=== PATIENT | male | born 1995 | race Caucasian/White ===

== ENCOUNTER 2020-06-05 20:33 | Inpatient (IN) | payer OTHER, SELFPAY ==
[2020-06-05 20:42] VITALS: BP 150/99; PULSE 103; RESP 22; TEMP 36.7; O2SAT 99; BMI 29.2
--- NOTE | 2020-06-05 20:55 | CTR_ITS ---
PROCEDURE INFORMATION: Exam: CT Abdomen And Pelvis With Contrast Exam date and time: 06/05/2020 9:00 PM Age: 24 years old Clinical indication: Abdominal pain; Patient HX: Rlq pain x 1 day; Additional info: Abd pain TECHNIQUE: Imaging protocol: Computed tomography of the abdomen and pelvis with contrast. Sagittal and coronal reformatted images were created and reviewed. Radiation optimization: All CT scans at this facility use at least one of these dose optimization techniques: automated exposure control; mA and/or kV adjustment per patient size (includes targeted exams where dose is matched to clinical indication); or iterative reconstruction. Contrast material: OMNI 300; Contrast volume: 95 ml; Contrast route: INTRAVENOUS (IV); COMPARISON: No relevant prior studies available. RADIATION DOSE METRICS: Total DLP (mGy-cm): 1617.2 FINDINGS: Lungs: Calcified granulomas in the the visualized lower lungs. Visualized lungs are clear. Pleural spaces: No pleural effusion. Heart: Visualized portions of the heart are unremarkable. Liver: The liver is unremarkable. Gallbladder and bile ducts: The gallbladder is unremarkable. No biliary ductal dilatation. Pancreas: The pancreas is unremarkable. No pancreatic ductal dilatation. Spleen: Calcified granuloma in the spleen. Adrenal glands: The right and left adrenal glands are unremarkable. Kidneys and ureters: The right and left kidneys are unremarkable. The right and left ureters are unremarkable. Stomach and bowel: Ingested contents in the stomach. No acute abnormality in the small bowel. Fatty infiltration of the wall of the the cecum and ascending colon. No acute abnormality in the colon. Findings suggest sequela of chronic inflammation. Appendix: Multiple calcified appendicoliths in the lumen of the appendix, including one at the base of the appendix. The appendix is dilated, measuring 1.7 cm in diameter (series 602, image 36). Extensive periappendiceal inflammation. Small amount of periappendiceal fluid. Intraperitoneal space: Small amount of free fluid in the pelvis. No free intraperitoneal air. No loculated fluid collections to suggest an abscess. Vasculature: No evidence for aortic aneurysm or aortic dissection. Hepatic veins, portal veins, splenic vein, and SMV are patent. Lymph nodes: Prominent lymph nodes in the right lower quadrant, likely reactive in nature. Urinary bladder: Unremarkable as visualized. Reproductive: Unremarkable as visualized. Bones/joints: No acute fracture. Soft tissues: No acute abnormality in the extra-abdominal soft tissues. CT/CT abdomen pelvis w con* [id number] IMPRESSION: 1. Multiple calcified appendicoliths in the lumen of the appendix, including one at the base of the appendix with changes consistent with appendicitis. No evidence for appendiceal rupture. 2. Small amount of free fluid in the pelvis. 3. Incidental/nonacute findings are listed in the report. COMMENTS: THIS REPORT CONTAINS FINDINGS THAT MAY BE CRITICAL TO PATIENT CARE. The findings were verbally communicated via telephone conference with NICK Rojas at 9:23 PM CDT on 06/05/2020. The findings were acknowledged and understood. Radiation Dose CTDIVOL = (mGy): DLP = 1617.2 (mGy-cm)
--- NOTE | 2020-06-05 21:00 | ED_ITS ---
HPI - Abdominal Pain General: Chief Complaint: Abdominal Pain Stated Complaint: severe abd pain, right side Time Seen by Provider: 06/05/20 20:51 Source: patient Mode of arrival: ambulatory Limitations: no limitations History of Present Illness: HPI narrative: 24-year-old male states he started having abdominal pain last night getting much worse today at 7:30 PM. He states he is also had nausea with no vomiting. Patient rates his pain an 9 out of 10 currently. He is diaphoretic and appears in distress. He has had no history of abdominal surgeries MD elicited complaint: abdominal pain Associated Symptoms: Reports nausea and vomiting; Denies chills, dysuria and fever(s) Review of Systems Const: Denies: fever(s), chills, body aches or change in appetite Eyes: Denies: blurry vision or eye discomfort ENMT: Denies: throat pain or dental pain Card: Denies: chest pain Resp: Denies: dyspnea GI: Reports: abdominal pain, nausea and vomiting : Denies: dysuria Musc: Denies: neck pain or back pain Skin/Breast: Denies: rash Neuro: Denies: headache(s) Psych: Denies: depression Ren/Lymph: Denies: easy bruising All/Imm: Denies: urticaria Physical Exam Const: COMMON NORMALS: no acute distress, patient oriented x3 and healthy appearing HENMT: COMMON NORMALS: normocephalic and atraumatic HEAD & SCALP: normocephalic and atraumatic Eye: COMMON NORMALS: Equal, round and reactive pupils present and EOMs intact bilaterally PUPIL: Yes Equal, round and reactive pupils present Neck/C-Spine: COMMON NORMALS: full ROM and supple Chest: COMMONS NORMALS: normal inspection of the chest and normal palpation of entire chest wall Resp: COMMON NORMALS: normal respiratory effort, No retractions, No use of accessory muscles and clear to auscultation bilaterally AUSCULTATION: clear to auscultation bilaterally Cardio: COMMON NORMALS: regular rate, regular rhythm and No murmurs present (Cardio) RATE: regular rate RHYTHM: regular rhythm GI: COMMON NORMALS: Normal to inspection, nondistended, normoactive bowel sounds present and no masses PALPATION: Yes Firmness to palpation present (GI) and Yes Tenderness to palpation present (GI) Details: RLQ Extremity: COMMON NORMALS: normal to inspection and full ROM Neuro: COMMON NORMALS: patient oriented x3, moves all extremities and no focal motor deficits Psych: COMMON NORMALS: mental status grossly normal, Normal thought process present and cooperative THOUGHT PROCESS: Normal thought process present Skin: COMMON NORMALS: no rashes or lesions noted and no wounds GENERAL SKIN EXAM: no rashes or lesions noted Course Vital Signs: Vital signs: Vital Signs Temperature 98.0 F 06/05/20 20:42 Pulse Rate 93 06/05/20 21:27 Respiratory Rate 19 H 06/05/20 21:27 Blood Pressure 167/104 06/05/20 21:27 Pulse Oximetry 97 06/05/20 21:27 MDM - Abdominal Pain MDM Narrative: Medical decision making narrative: Patient presents with appendicitis. I spoke to surgeon on-call will do CT findings with him. He is going to take him to the OR at this time. Patient started on IV antibiotics. Lab Data: Labs: Lab Results 06/05/20 06/05/20 Range/Units 20:57 20:57 WBC 17.9 H (4.0-10.0) 10^3/ uL RBC 5.40 H (4.1-5.3) 10^6/u L Hgb 16.7 H (11.7-16.6) g/dL Hct 48.1 (42.0-52.0) % MCV 89.1 (80-94) fL MCH 30.9 (28.0-34.0) pg MCHC 34.7 (30.0-36.0) g/dL RDW 11.3 L (12.1-15.1) % Plt Count 348 (130-400) 10^3/c mm MPV 10.3 (7.4-10.4) fL Neut % (Auto) 70.7 % Lymph % (Auto) 20.2 % [place] % (Auto) 7.8 % Eos % (Auto) 0.6 % Baso % (Auto) 0.4 % Neut # (Auto) 12.66 H (1.8-7.7) 10^3/u L Lymph # (Auto) 3.6 (0.8-4.8) 10^3/u L [place] # (Auto) 1.4 H (0.2-0.9) 10^3/u L Eos # (Auto) 0.1 (0.0-0.8) 10^3/u L Baso # (Auto) 0.1 (0.0-0.1) 10^3/u L Nucleated RBC % (a uto) 0 % Nucleated RBCs # 0.0 /100WBC Sodium 134 L (136-145) mmol/L Potassium 3.6 (3.5-5.1) mmol/L Chloride 96 L (98-107) mmol/L Carbon Dioxide 21 L (22-29) mmol/L Anion Gap 20.6 H (5-19) BUN 9 (6-20) mg/dL Creatinine 0.6 L (0.7-1.2) mg/dL GFR Calculation 165.5 H (90-130) mL/min Glucose 129 H (65-115) mg/dL Calculated Osmolal ity 278 L (285-295) mOsm/k g Calcium 9.5 (8.5-10.5) mg/dL Total Bilirubin 0.8 (0.15-1.2) mg/dL AST 25 (0-40) U/L ALT 43 H (0-41) U/L Alkaline Phosphata se 160 H (40-130) IU/L Total Protein 8.0 (6.6-8.7) g/dL Albumin 4.5 (3.5-5.2) g/dL Globulin 3.5 (1.3-4.6) g/dL Lipase 17 (13-60) U/L Imaging Data ^: CT Abd/Pel: Attestation: I personally reviewed and interpreted this imaging study as follows: Radiologist's impression: [address] [address] [address] Scan Report Signed Patient: Abdelrahman Nelson Unit #: [id number] : 1995 Age/Sex: 24 / M ADM Date: 06/05/20 Loc: ER Room/Bed: Attending Dr: Ordering Provider/Ordering MD: Lamar Tucker MD Date of Service: 06/05/20 Procedure(s): CT abdomen pelvis w con* [id number] Accession Number(s): [id number] Report Number: [id number] PROCEDURE INFORMATION: Exam: CT Abdomen And Pelvis With Contrast Exam date and time: 06/05/2020 9:00 PM Age: 24 years old Clinical indication: Abdominal pain; Patient HX: Rlq pain x 1 day; Additional info: Abd pain TECHNIQUE: Imaging protocol: Computed tomography of the abdomen and pelvis with contrast. Sagittal and coronal reformatted images were created and reviewed. Radiation optimization: All CT scans at this facility use at least one of these dose optimization techniques: automated exposure control; mA and/or kV adjustment per patient size (includes targeted exams where dose is matched to clinical indication); or iterative reconstruction. Contrast material: OMNI 300; Contrast volume: 95 ml; Contrast route: INTRAVENOUS (IV); COMPARISON: No relevant prior studies available. RADIATION DOSE METRICS: Total DLP (mGy-cm): 1617.2 FINDINGS: Lungs: Calcified granulomas in the the visualized lower lungs. Visualized lungs are clear. Pleural spaces: No pleural effusion. Heart: Visualized portions of the heart are unremarkable. Liver: The liver is unremarkable. Gallbladder and bile ducts: The gallbladder is unremarkable. No biliary ductal dilatation. Pancreas: The pancreas is unremarkable. No pancreatic ductal dilatation. Spleen: Calcified granuloma in the spleen. Adrenal glands: The right and left adrenal glands are unremarkable. Kidneys and ureters: The right and left kidneys are unremarkable. The right and left ureters are unremarkable. Stomach and bowel: Ingested contents in the stomach. No acute abnormality in the small bowel. Fatty infiltration of the wall of the the cecum and ascending colon. No acute abnormality in the colon. Findings suggest sequela of chronic inflammation. Appendix: Multiple calcified appendicoliths in the lumen of the appendix, including one at the base of the appendix. The appendix is dilated, measuring 1.7 cm in diameter (series 602, image 36). Extensive periappendiceal inflammation. Small amount of periappendiceal fluid. Intraperitoneal space: Small amount of free fluid in the pelvis. No free intraperitoneal air. No loculated fluid collections to suggest an abscess. Vasculature: No evidence for aortic aneurysm or aortic dissection. Hepatic veins, portal veins, splenic vein, and SMV are patent. Lymph nodes: Prominent lymph nodes in the right lower quadrant, likely reactive in nature. Urinary bladder: Unremarkable as visualized. Reproductive: Unremarkable as visualized. Bones/joints: No acute fracture. Soft tissues: No acute abnormality in the extra-abdominal soft tissues. CT/CT abdomen pelvis w con* [id number] IMPRESSION: 1. Multiple calcified appendicoliths in the lumen of the appendix, including one at the base of the appendix with changes consistent with appendicitis. No evidence for appendiceal rupture. 2. Small amount of free fluid in the pelvis. 3. Incidental/nonacute findings are listed in the report. COMMENTS: Discharge Plan Discharge Patient Disposition: Admitted As Inpatient Clinical Impression: Acute appendicitis Qualifiers: Acute appendicitis type: with localized peritonitis Appendicitis gangrene presence: without gangrene Appendicitis perforation presence: without pe rforation Appendicitis abscess presence: without abscess Qualified Code(s): K35.30 - Acute appendicitis with localized peritonitis, without perforation or gangrene Condition: Stable Coding Level of Care Code ED Machine Design Checker for Chg Fwd Exam Comprehensive
[2020-06-05 21:07] LABS: Basophils # 0.1 10^3/uL (0.0-0.1); Basophils % 0.4 %; Eosinophils # 0.1 10^3/uL (0.0-0.8); Eosinophils % 0.6 %; Hematocrit 48.1 % (42.0-52.0); Hemoglobin 16.7 g/dL (11.7-16.6); Lymphocytes # 3.6 10^3/uL (0.8-4.8); Lymphocytes % 20.2 %; Mean Corpuscular HGB Conc 34.7 g/dL (30.0-36.0); Mean Corpuscular Hemoglobin 30.9 pg (28.0-34.0); Mean Corpuscular Volume 89.1 fL (80-94); Mean Platelet Volume 10.3 fL (7.4-10.4); Monocytes # 1.4 10^3/uL (0.2-0.9); Monocytes % 7.8 %; Neutrophils # 12.66 10^3/uL (1.8-7.7); Neutrophils % 70.7 %; Nucleated Red Blood Cells % 0 %; Platelet Count 348 10^3/cmm (130-400); Red Cell Distribution Width 11.3 % (12.1-15.1); White Blood Count 17.9 10^3/uL (4.0-10.0)
[2020-06-05] MEDS: ondansetron 2 mg/ML SDV 2 mL 4 MG IVP (21:08)
[2020-06-05] MEDS: iohexol 300 mg/mL 100 mL Btl IV (21:08)
[2020-06-05] MEDS: HYDROmorphone 1 mg/mL INJ 1 mL IVP ×2 (21:08→21:33)
[2020-06-05 21:23] LABS: Alanine Aminotransferase 43 U/L (0-41); Albumin Level 4.5 g/dL (3.5-5.2); Alkaline Phosphatase 160 IU/L (40-130); Anion Gap 20.6 (5-19); Aspartate Amino Transferase 25 U/L (0-40); Blood Urea Nitrogen 9 mg/dL (6-20); Calcium 9.5 mg/dL (8.5-10.5); Carbon Dioxide 21 mmol/L (22-29); Chloride 96 mmol/L (98-107); Globulin 3.5 g/dL (1.3-4.6); Glomerular Filtration Rate 165.5 mL/min (90-130); Glucose 129 mg/dL (65-115); Lipase 17 U/L (13-60); Osmolality Calculated 278 mOsm/kg (285-295); Potassium 3.6 mmol/L (3.5-5.1); Sodium 134 mmol/L (136-145); Total Bilirubin 0.8 mg/dL (0.15-1.2)
[2020-06-05] MEDS: piperacillin-tazobactam 3.375 GM in sodium chloride 0.9% (plus) 50 ML IV (21:24)
[2020-06-05 21:27] VITALS: BP 167/104; PULSE 93; RESP 19; O2SAT 97
--- NOTE | 2020-06-05 22:18 | PM.HP ---
Providers/Chief Complaint Primary Care Provider: Dario Yoon MD Chief Complaint: severe abd pain, right side History of Present Illness Abdelrahman Nelson is a 24 year old male presented to the ER today with 24-hour history of generalized abdominal pain. Patient stated pain started last night but was not significant during the course of the day today got progressively worse. The pain was generalized but more prominent in the right lower quadrant. Patient denies any nausea, vomiting, fevers, chills, constipation or diarrhea. Review of Systems General: Reports: 10 or more systems reviewed and unremarkable except in HPI and below Medications/Allergies Home Medications Medication Instructions Recorded Confirmed Last Taken Type No Known Home Medications 06/05/20 06/05/20 Unknown History Allergies Allergy/AdvReac Type Severity Reaction Status Date / Time No Known Allergies Allergy Verified 06/05/20 20:48 Vitals/I&O/Wt Last Vital Signs Temp 98.0 F 06/05/20 20:42 Pulse 93 06/05/20 21:27 Resp 19 H 06/05/20 21:27 BP 167/104 06/05/20 21:27 Pulse Ox 97 06/05/20 21:27 06/05/20 06/05/20 06/05/20 06:59 14:59 22:59 Intake Total 50 / 50 Balance 50 / 50 Weight last 48 hrs Weight 210 lb Physical Exam Narrative: EXAM NARRATIVE: HEENT: Normocephalic Eye: Sclera /conjunctiva normal Respiratory and chest: Bilateral clear breath sounds on auscultation Cardiovascular: Normal S1 and S2 heart sounds Abdomen: Soft to palpation, generalized tenderness, Rovsing sign positive Neurological: Oriented to place person and time Skin: Intact, no lesions appreciated on gross exam Data : 06/05/20 20:57 06/05/20 20:57 A&P Assessment and plan (1) Acute appendicitis: 24-year-old male with generalized abdominal pain, leukocytosis white count of 17.[address] scan performed today showing acute appendicitis with no evidence of perforation. Patient has generalized tenderness with voluntary guarding and therefore we will plan for laparoscopic possible open appendectomy today Procedure, risks, benefits and alternatives have been discussed with the patient who wishes to proceed with surgery. Status: Resolved Qualifiers: Acute appendicitis type: with localized peritonitis Appendicitis abscess presence: without abscess Appendicitis gangrene presence: without gangrene Appendicitis perforation presence: without perforation Qualified Code(s): K35.30 - Acute appendicitis with localized peritonitis, without perforation or gangrene Attestations Medical Necessity Statement*: Acute appendicitis Coding Level of Care Code Acute Analysis Lead for [facility] Diagnoses Acute appendicitis K35.30 Acute appendicitis type: with localized peritonitis Appendicitis abscess presence: without abscess Appendicitis gangrene presence: without gangrene Appendicitis perforation presence: without perforation
[2020-06-05 22:22] VITALS: BP 156/102; PULSE 94; RESP 22; TEMP 36.6; O2SAT 98
[2020-06-05] MEDS: sodium chloride 0.9% 1,000 ML 30 ML IV (22:24)
--- NOTE | 2020-06-05 22:35 | P.ANESASSM_ITS ---
Pre-Anesthetic Assessment Pre-Anesthetic Assessment: Height/Weight: Height 1.8 m Weight 95.254 kg Temp Pulse Resp BP Pulse Ox 98.0 F 93 19 H 167/104 97 06/05/20 20:42 06/05/20 21:27 06/05/20 21:27 06/05/20 21:27 06/05/20 21:27 Preop Diagnosis: Acute appendicitis Proposed Procedure: Operation Date: 06/05/20 22:30 Proposed Procedures p Laparoscopic Appendectomy(Not Applicable) - Onofre Mann MD Operation Date: 06/06/20 00:05 Proposed Procedures p Laparoscopic Appendectomy(Not Applicable) - Onofre Mann MD Familial anesthetic complications: none Was Beta Geovany taken within 24 hours: N/A Was Clonidine taken within 24 hours: N/A Last intake: V8 juice at 1500 Social: Social History: Tobacco and No alcohol Exam: Pre-Anes Outpt Exam: alert, oriented x 3, clear to auscultation bilaterally and regular rate & rhythm Airway: Cervical ROM: WNL MP: 3 Dentition: Full Additional comments: states tooth may be starting to abscess Anesthetic Plan: ASA status: 1E Anesthesia: General Risk of > 500 ml blood loss (7ml/kg in children): No Data Anesthesia CBC & Chem 7: 06/05/20 20:57 06/05/20 20:57 Other Labs: Laboratory Results - last 48 hr 06/05/20 06/05/20 20:57 20:57 WBC 17.9 H RBC 5.40 H Hgb 16.7 H Hct 48.1 MCV 89.1 MCH 30.9 MCHC 34.7 RDW 11.3 L Plt Count 348 MPV 10.3 Neut % (Auto) 70.7 Lymph % (Auto) 20.2 [place] % (Auto) 7.8 Eos % (Auto) 0.6 Baso % (Auto) 0.4 Neut # (Auto) 12.66 H Lymph # (Auto) 3.6 [place] # (Auto) 1.4 H Eos # (Auto) 0.1 Baso # (Auto) 0.1 Nucleated RBC % (auto) 0 Nucleated RBCs # 0.0 Sodium 134 L Potassium 3.6 Chloride 96 L Carbon Dioxide 21 L Anion Gap 20.6 H BUN 9 Creatinine 0.6 L GFR Calculation 165.5 H Glucose 129 H Calculated Osmolality 278 L Calcium 9.5 Total Bilirubin 0.8 AST 25 ALT 43 H Alkaline Phosphatase 160 H Total Protein 8.0 Albumin 4.5 Globulin 3.5 Lipase 17 Cardiac Studies: No Data to Display
--- NOTE | 2020-06-05 23:45 | P.OP_ITS ---
Operative Report Date of procedure: June 05, 2020 Pre-op Diagnosis: Acute appendicitis Post-op Diagnosis: Acute perforated appendicitis Procedure Done: Laparoscopic appendectomy Specimens removed/disposition: Appendix Surgeon: Onofre Mann Anesthesia: General Condition: stable Disposition: PACU Procedure: The patient was taken to the Operating Room and intubated under general anesthesia after antibiotic had been administered. Using a 15 blade, a 1-cm infraumbilical incision was made and using open [place] technique, the peritoneal cavity was entered. A 12mm port with balloon was placed and 15 mm of pneumoperitoneum was created and 10-mm 30 degree scope was introduced. Two separate 5mm ports were placed in the left and right lower quadrant under direct visualization. The appendix was noted in the right lower quadrant and appeared acutely inflamed with a perforation near the base of the appendix. There was moderate amount of purulent fluid in the right lower quadrant and pelvis which was irrigated and suctioned out. Using [place] forceps, an opening was made in the mesoappendix near the base of the appendix. An Endo WILLIAM stapler 45mm long 3.5mm blue load was introduced to divide the appendix at it's base. Using electrocautery, the mesoappendix was partially divided and then a 45 mm long 2.5 mm white load was used to divide the rest of the thickened mesoappendix including appendicular artery. There was no bleeding noted and the staple line appeared intact. The right lower quadrant, pelvis, right paracolic gutter was irrigated with 2 L of saline and an EndoCatch bag was introduced to remove the a ppendix. All three ports were removed under direct visualization and there was no bleeding noted at the port sites. 10 cc of 0.5% Marcaine was infiltrated at the port sites. The fascia at the umbilical port was closed using figure of eight 0-Vicryl sutures and subcutaneous tissue was approximated using 3-0 Vicryl and skin at all 3 port sites was closed using rod and covered with sterile dressings. The patient was extubated and transferred recovery room in stable condition.
[2020-06-05 23:57] VITALS: BP 156/106; PULSE 90; RESP 16; TEMP 37.2; O2SAT 97
[2020-06-06] VITALS (18 sets, daily range): BP systolic 120–161; BP diastolic 78–111; PULSE 80–110; RESP 16–21; TEMP 36.9–37.7; O2SAT 95–97
--- NOTE | 2020-06-06 00:01 | P.PCN_ITS ---
PACU note PACU note: VSS, Good respiratory effort, report to SUPERVISOR SECURITIES VAULT Post-Anesthesia Exam: awake
--- NOTE | 2020-06-06 00:01 | PM.PACU ---
PACU note PACU note: VSS, Good respiratory effort, report to SUPERVISOR STONE Post-Anesthesia Exam: awake
[2020-06-06] MEDS: piperacillin-tazobactam 3.375 GM in sodium chloride 0.9% (plus) 50 ML IV ×3 (01:02→16:10)
[2020-06-06] MEDS: D5-NS 0.45% + KCL 20 mEq 20 MEQ/1,000 ML BAG 100 MEQ IV ×3 (01:02→20:39)
[2020-06-06] MEDS: HYDROcodone-acetaminophen 5-325 mg Tablet 1 TAB PO ×2 (05:44→17:28)
[2020-06-06 06:55] LABS: Basophils % 0.2 %; Eosinophils # 0.2 10^3/uL (0.0-0.8); Eosinophils % 1.3 %; Hematocrit 45.3 % (42.0-52.0); Hemoglobin 15.1 g/dL (11.7-16.6); Lymphocytes # 0.3 10^3/uL (0.8-4.8); Lymphocytes % 1.9 %; Mean Corpuscular HGB Conc 33.3 g/dL (30.0-36.0); Mean Corpuscular Hemoglobin 31.2 pg (28.0-34.0); Mean Corpuscular Volume 93.6 fL (80-94); Mean Platelet Volume 10.4 fL (7.4-10.4); Monocytes # 0.7 10^3/uL (0.2-0.9); Monocytes % 4.1 %; Neutrophils # 16.22 10^3/uL (1.8-7.7); Neutrophils % 91.7 %; Nucleated Red Blood Cells % 0 %; Platelet Count 268 10^3/cmm (130-400); Red Blood Count 4.84 10^6/uL (4.1-5.3); Red Cell Distribution Width 11.5 % (12.1-15.1); White Blood Count 17.7 10^3/uL (4.0-10.0)
--- NOTE | 2020-06-06 07:03 | ANE.PACU2 ---
Inpatient post-anesthesia follow up: Airway intact: Yes Vital signs: Temperature 98.9 F Pulse Rate [Left] 103 Pulse Rate 110 Respiratory Rate 18 Blood Pressure [Le ft Arm] 150/99 Blood Pressure 152/99 Pulse Oximetry 97 Oxygen Delivery Me thod Room Air Oxygen Flow Rate Fraction of Inspir ed Oxygen Hydration adequate: Yes Nausea and vomiting: No Pain level: 3 Mental status: Baseline
[2020-06-06] MEDS: docusate sodium 100 mg Capsule PO ×2 (10:10→17:28)
[2020-06-06] MEDS: acetaminophen 325 mg Tablet 650 MG PO (10:10)
--- NOTE | 2020-06-06 10:12 | PM.PN ---
Subjective Subjective: Interval history: Patient states he is feeling better today after surgery, no nausea or vomiting, tolerating clears, no flatus or BM Vitals/I&O/Wt Last Vital Signs Temp 98.6 F 06/06/20 07:05 Pulse 110 H 06/06/20 07:05 Resp 17 06/06/20 07:05 BP 141/92 06/06/20 07:05 Pulse Ox 96 06/06/20 07:05 06/05/20 06/06/20 06/06/20 22:59 06:59 14:59 Intake Total 50 / 410 360 / 410 390 / 390 Output Total 425 / 425 425 / 425 Balance 50 / -15 -65 / -15 -35 / -35 Weight last 48 hrs Weight 210 lb Physical Exam Narrative: EXAM NARRATIVE: Abdomen: Soft, mildly distended, tender, dressings minimally saturated and intact Data : 06/06/20 06:35 06/05/20 20:57 A&P Assessment and plan (1) S/P laparoscopic appendectomy: 24-year-old male status post laparoscopic appendectomy for perforated appendicitis, with leukocytosis, tachycardic and has postop ileus Continue IV fluids Continue clear liquid diet Ambulate ad ramirez. Continue IV Zosyn CBC tomorrow morning Morphine and [place] for pain control Colace 100 mg p.o. twice daily for bowel regimen Status: Acute Attestations Medical Necessity Statement*: Acute appendicitis requiring continued in patient stay for IV antibiotics Coding Level of Care Code Acute Marriage And Family Social Worker for g Fwd Diagnoses S/P laparoscopic appendectomy Z90.49
[2020-06-07] MEDS: piperacillin-tazobactam 3.375 GM in sodium chloride 0.9% (plus) 50 ML IV ×3 (00:12→17:00)
[2020-06-07 04:00] VITALS: BP 120/78; PULSE 99; RESP 17; TEMP 36.7; O2SAT 96
[2020-06-07] MEDS: HYDROcodone-acetaminophen 5-325 mg Tablet 1 TAB PO (05:31)
[2020-06-07] MEDS: D5-NS 0.45% + KCL 20 mEq 20 MEQ/1,000 ML BAG 100 MEQ IV ×2 (05:32→17:01)
[2020-06-07 06:53] LABS: Basophils % 0.2 %; Eosinophils % 0.2 %; Hematocrit 41.8 % (42.0-52.0); Hemoglobin 13.6 g/dL (11.7-16.6); Lymphocytes # 1.8 10^3/uL (0.8-4.8); Lymphocytes % 12.1 %; Mean Corpuscular HGB Conc 32.5 g/dL (30.0-36.0); Mean Corpuscular Hemoglobin 31.1 pg (28.0-34.0); Mean Corpuscular Volume 95.4 fL (80-94); Monocytes # 1.1 10^3/uL (0.2-0.9); Monocytes % 7.5 %; Neutrophils # 11.56 10^3/uL (1.8-7.7); Neutrophils % 79.2 %; Nucleated Red Blood Cells % 0 %; Platelet Count 241 10^3/cmm (130-400); Red Blood Count 4.38 10^6/uL (4.1-5.3); Red Cell Distribution Width 11.7 % (12.1-15.1); White Blood Count 14.6 10^3/uL (4.0-10.0)
[2020-06-07 07:33] VITALS: BP 122/73; PULSE 72; RESP 16; TEMP 37; O2SAT 98
[2020-06-07] MEDS: acetaminophen 325 mg Tablet 650 MG PO ×2 (09:53→20:30)
[2020-06-07] MEDS: docusate sodium 100 mg Capsule PO (09:53)
[2020-06-07 11:24] VITALS: BP 126/68; PULSE 68; RESP 17; TEMP 36.8; O2SAT 99
--- NOTE | 2020-06-07 12:06 | P.PN_ITS ---
Subjective Subjective: Interval history: Patient is distended, no nausea or vomiting, no flatus or BM Vitals/I&O/Wt Last Vital Signs Temp 98.2 F 06/07/20 11:24 Pulse 68 06/07/20 11:24 Resp 17 06/07/20 11:24 BP 126/68 06/07/20 11:24 Pulse Ox 99 06/07/20 11:24 06/06/20 06/07/20 06/07/20 22:59 06:59 14:59 Intake Total 1360 / 3623.333 938.333 / 3623.333 240 / 240 Output Total 500 / 925 Balance 1360 / 2698.333 438.333 / 2698.333 240 / 240 Weight last 48 hrs Weight 210 lb Physical Exam Narrative: EXAM NARRATIVE: Abdomen: Soft, distended, minimally tender Data : 06/07/20 05:23 06/05/20 20:57 A&P Assessment and plan (1) S/P laparoscopic appendectomy: 24-year-old male status post laparoscopic appendectomy for perforated appendicitis, with leukocytosis trending down, has postop ileus Continue IV fluids Continue clear liquid diet Ambulate ad ramirez. Continue IV Zosyn CBC tomorrow morning Morphine and [place] for pain control Colace 100 mg p.o. twice daily for bowel regimen Status: Acute Attestations Medical Necessity Statement*: Postoperative status post laparoscopic appendectomy for perforated appendicitis requiring continued inpatient stay Coding Level of Care Code Acute Pile Fabric Knitter for [place] Fwd Diagnoses S/P laparoscopic appendectomy Z90.49
[2020-06-07 15:35] VITALS: BP 122/65; PULSE 73; RESP 17; TEMP 37.1; O2SAT 99
--- NOTE | 2020-06-07 17:54 | XRR_ITS ---
PROCEDURE INFORMATION: Exam: XR Chest Exam date and time: 06/07/2020 6:07 PM Age: 24 years old Clinical indication: Device placement; Ng tube; Prior surgery; Surgery type: Appy; Additional info: Ng insertion TECHNIQUE: Imaging protocol: XR of the chest Views: 1 view. Total images: 1 COMPARISON: No relevant prior studies available. FINDINGS: Tubes, catheters and devices: Nasogastric tube tip below the diaphragm at the level of the mid gastric lumen. Lungs: No visible active interstitial or alveolar airspace disease. Pleural spaces: Unremarkable. No pleural effusion. No pneumothorax. Heart/Mediastinum: Unremarkable. No cardiomegaly. Vasculature: Ectatic loops of small and large bowel within the field of view of the abdomen. Bones/joints: Unremarkable. XR/XR chest 1V portable [id number] IMPRESSION: Nasogastric tube tip below the diaphragm at the level of the mid gastric lumen.
[2020-06-07] MEDS: ondansetron 2 mg/ML SDV 2 mL 4 MG IVP (18:23)
[2020-06-07 19:54] VITALS: BP 148/103; PULSE 108; RESP 26; TEMP 37.4; O2SAT 96
[2020-06-08] VITALS: BP 135/85; PULSE 105; RESP 18; TEMP 36.6; O2SAT 95
[2020-06-08] MEDS: piperacillin-tazobactam 3.375 GM in sodium chloride 0.9% (plus) 50 ML IV ×4 (01:07→23:48)
[2020-06-08] MEDS: D5-NS 0.45% + KCL 20 mEq 20 MEQ/1,000 ML BAG 100 MEQ IV ×3 (03:53→23:48)
[2020-06-08 04:00] VITALS: BP 147/99; PULSE 102; RESP 20; TEMP 36.6; O2SAT 96
[2020-06-08 05:55] LABS: Basophils % 0.2 %; Eosinophils # 0.1 10^3/uL (0.0-0.8); Eosinophils % 0.4 %; Hematocrit 45.9 % (42.0-52.0); Hemoglobin 14.9 g/dL (11.7-16.6); Lymphocytes # 1.2 10^3/uL (0.8-4.8); Lymphocytes % 7.5 %; Mean Corpuscular HGB Conc 32.5 g/dL (30.0-36.0); Mean Corpuscular Hemoglobin 30.7 pg (28.0-34.0); Mean Corpuscular Volume 94.4 fL (80-94); Mean Platelet Volume 10.6 fL (7.4-10.4); Monocytes # 1.2 10^3/uL (0.2-0.9); Monocytes % 7.6 %; Neutrophils # 13.43 10^3/uL (1.8-7.7); Neutrophils % 83.7 %; Nucleated Red Blood Cells % 0 %; Platelet Count 313 10^3/cmm (130-400); Red Blood Count 4.86 10^6/uL (4.1-5.3); Red Cell Distribution Width 11.6 % (12.1-15.1); White Blood Count 16.1 10^3/uL (4.0-10.0)
[2020-06-08 06:08] LABS: Anion Gap 13.7 (5-19); Blood Urea Nitrogen 6 mg/dL (6-20); Calcium 8.9 mg/dL (8.5-10.5); Carbon Dioxide 27 mmol/L (22-29); Chloride 98 mmol/L (98-107); Glomerular Filtration Rate 138.6 mL/min (90-130); Glucose 143 mg/dL (65-115); Osmolality Calculated 280 mOsm/kg (285-295); Potassium 3.7 mmol/L (3.5-5.1); Sodium 135 mmol/L (136-145)
--- NOTE | 2020-06-08 07:50 | P.PN_ITS ---
Subjective Subjective: Interval history: Patient had 2 episodes of emesis yesterday, continue to be distended NG tube was placed but he pulled it out and did not want NG tube replaced. Passing flatus now. Denies any nausea or vomiting though he still distended Vitals/I&O/Wt Last Vital Signs Temp 97.8 F 06/08/20 04:00 Pulse 102 H 06/08/20 04:00 Resp 20 H 06/08/20 04:00 BP 147/99 06/08/20 04:00 Pulse Ox 96 06/08/20 04:00 06/07/20 06/08/20 06/08/20 22:59 06:59 14:59 Intake Total 1000 / 2471.667 1061.667 / 2471.667 Output Total 275 / 275 Balance 1000 / 2196.667 786.667 / 2196.667 Physical Exam Narrative: EXAM NARRATIVE: Abdomen: Soft, distended, minimally tender, incision clean dry and intact Data : 06/08/20 05:33 06/08/20 05:33 A&P Assessment and plan (1) S/P laparoscopic appendectomy: 24-year-old male status post laparoscopic appendectomy for perforated appendicitis, with leukocytosishas postop ileus Continue IV fluids N.p.o. except ice chips, if patient has emesis will need an NG tube Ambulate ad ramirez. Continue IV Zosyn Daily labs Morphine, Tylenol and [place] for pain control Colace senna and lactulose for bowel regimen Status: Acute Attestations Medical Necessity Statement*: Status post laparoscopic appendectomy for perforated appendicitis currently doing well Coding Level of Care Code Acute Frame Stylist for Loren Fwd Diagnoses S/P laparoscopic appendectomy Z90.49
[2020-06-08 07:53] VITALS: BP 147/99; PULSE 102; RESP 20; TEMP 36.6; O2SAT 96
[2020-06-08] MEDS: sennosides-docusate Tablet 1 TAB PO ×2 (09:21→17:09)
[2020-06-08] MEDS: lactulose oral liq 20 gm/30 mL UDC 10 GM PO ×2 (09:21→20:28)
[2020-06-08] MEDS: acetaminophen 325 mg Tablet 650 MG PO ×2 (09:21→17:09)
[2020-06-08 11:31] VITALS: BP 132/93; PULSE 102; RESP 19; TEMP 36.5; O2SAT 96
[2020-06-08 15:26] VITALS: BP 142/93; PULSE 120; RESP 19; TEMP 36.6; O2SAT 98
[2020-06-08 19:42] VITALS: BP 142/89; PULSE 100; RESP 18; TEMP 37.4; O2SAT 95
[2020-06-09] VITALS: BP 160/90; PULSE 109; RESP 18; TEMP 37.4; O2SAT 95
[2020-06-09] MEDS: acetaminophen 325 mg Tablet 650 MG PO ×2 (03:35→09:05)
[2020-06-09 03:40] LABS: Basophils % 0.3 %; Eosinophils # 0.1 10^3/uL (0.0-0.8); Eosinophils % 0.8 %; Hematocrit 42.8 % (42.0-52.0); Hemoglobin 14.3 g/dL (11.7-16.6); Lymphocytes # 1.2 10^3/uL (0.8-4.8); Lymphocytes % 9.7 %; Mean Corpuscular HGB Conc 33.4 g/dL (30.0-36.0); Mean Corpuscular Hemoglobin 30.7 pg (28.0-34.0); Mean Corpuscular Volume 91.8 fL (80-94); Mean Platelet Volume 10.6 fL (7.4-10.4); Monocytes # 1.4 10^3/uL (0.2-0.9); Monocytes % 11.9 %; Neutrophils # 9.01 10^3/uL (1.8-7.7); Neutrophils % 76.3 %; Nucleated Red Blood Cells % 0 %; Platelet Count 320 10^3/cmm (130-400); Red Blood Count 4.66 10^6/uL (4.1-5.3); Red Cell Distribution Width 11.4 % (12.1-15.1); White Blood Count 11.8 10^3/uL (4.0-10.0)
[2020-06-09 04:00] VITALS: BP 116/76; PULSE 120; RESP 20; TEMP 37.6; O2SAT 95
[2020-06-09 04:32] LABS: Anion Gap 14.6 (5-19); Blood Urea Nitrogen 7 mg/dL (6-20); Calcium 8.9 mg/dL (8.5-10.5); Carbon Dioxide 26 mmol/L (22-29); Chloride 97 mmol/L (98-107); Glomerular Filtration Rate 138.6 mL/min (90-130); Glucose 143 mg/dL (65-115); Osmolality Calculated 278 mOsm/kg (285-295); Potassium 3.6 mmol/L (3.5-5.1); Sodium 134 mmol/L (136-145)
[2020-06-09 07:25] VITALS: BP 155/75; PULSE 90; RESP 18; TEMP 36.6; O2SAT 97
[2020-06-09] MEDS: sennosides-docusate Tablet 1 TAB PO (08:57)
[2020-06-09] MEDS: piperacillin-tazobactam 3.375 GM in sodium chloride 0.9% (plus) 50 ML IV (08:57)
--- NOTE | 2020-06-09 10:28 | P.PN_ITS ---
Subjective Subjective: Interval history: Patient had multiple bowel movements yesterday, no nausea or vomiting, tolerating clear liquid diet Vitals/I&O/Wt Last Vital Signs Temp 97.8 F 06/09/20 07:25 Pulse 90 06/09/20 07:25 Resp 18 06/09/20 07:25 BP 155/75 06/09/20 07:25 Pulse Ox 97 06/09/20 07:25 06/08/20 06/09/20 06/09/20 22:59 06:59 14:59 Intake Total 110 / 2193.333 1033.333 / 2193.333 Output Total 450 / 525 200 / 200 Balance -340 / 6764.062 1904.333 / 1668.333 -200 / -200 Physical Exam 2 Narrative: EXAM NARRATIVE: Abdomen: Soft, minimally distended, nontender, incision clean dry intact Data : 06/09/20 03:02 06/09/20 03:02 A&P Assessment and plan (1) S/P laparoscopic appendectomy: 24-year-old male status post laparoscopic appendectomy for perforated appendicitis, with WBC down to 11.8 and return of bowel function Continue IV fluids Advance to GI soft diet Ambulate ad ramirez. DC home today on oral antibiotics Status: Acute Attestations Medical Necessity Statement*: Acute appendicitis DC home today Coding Level of Care Code Acute [employer] Of [employer] for [employer]ian [employer] Diagnoses S/P laparoscopic appendectomy Z90.49
--- NOTE | 2020-06-09 10:29 | PM.DCS ---
Discharge Providers Date of Admission: 06/06/20 10:15 Date of Discharge: June 09, 2020 Attending Provider at Admission: Onofre Mann MD Attending Provider at Discharge: Onofre Mann MD Primary Care Provider: Dario Yoon MD Diagnoses at Discharge Discharge Diagnosis (1) S/P laparoscopic appendectomy: Status: Acute Reason for Visit Reason for Visit: severe abd pain, right side Hospital Course Hospital Course Abdelrahman Nelson is a 24 year old male presented to the ER today with 24-hour history of generalized abdominal pain. Patient stated pain started last night but was not significant during the course of the day today got progressively worse. The pain was generalized but more prominent in the right lower quadrant. Patient denies any nausea, vomiting, fevers, chills, constipation or diarrhea. Patient went laparoscopic appendectomy and was admitted to the hospital for IV antibiotics due to perforation of the appendix noted during surgery. Patient subsequently developed postop ileus with nausea and vomiting and abdominal distention requiring NG tube placement. By day 3 he had return of bowel function and he is tolerating clear liquid diet. At time of discharge his vital signs are stable, afebrile, tolerating GI soft diet and having bowel movements. His white count is down to 11. Patient will be discharged home on oral antibiotics for 1 week Follow-up 2 weeks for removal of sutures Discharge Data Data Completed and Pending: Completed Studies During Hospitalization Category Date Time Status CT abdomen pelvis w con* [id number] Urge nt Cat Scan 06/05/20 20:55 Completed CXRP [XR chest 1V portable 15944] S tat Exams 06/07/20 17:54 Completed Pending at discharge Category Date Time Status ES surgery / GI i mages Routine Exams 06/05/20 22:11 Taken Basic Metabolic P emiliana AM LABS Lab 06/10/20 04:00 Ordered Basic Metabolic P emiliana AM LABS Lab 06/11/20 04:00 Ordered Complete Blood Co unt w/Auto AM LABS Lab 06/10/20 04:00 Ordered Complete Blood Co unt w/Auto AM LABS Lab 06/11/20 04:00 Ordered Pathology: Surgic al [PTH] Routine Pth 06/05/20 23:44 Received Labs from last 24 hours 06/09/20 06/09/20 03:02 03:02 WBC 11.8 H RBC 4.66 Hgb 14.3 Hct 42.8 MCV 91.8 MCH 30.7 MCHC 33.4 RDW 11.4 L Plt Count 320 MPV 10.6 H Neut % (Auto) 76.3 Lymph % (Auto) 9.7 Eddy % (Auto) 11.9 Eos % (Auto) 0.8 Baso % (Auto) 0.3 Neut # (Auto) 9.01 H Lymph # (Auto) 1.2 Eddy # (Auto) 1.4 H Eos # (Auto) 0.1 Baso # (Auto) 0.0 Nucleated RBC % (a uto) 0 Nucleated RBCs # 0.0 Sodium 134 L Potassium 3.6 Chloride 97 L Carbon Dioxide 26 Anion Gap 14.6 BUN 7 Creatinine 0.7 GFR Calculation 138.6 H Glucose 143 H Calculated Osmolal ity 278 L Calcium 8.9 Vitals: Last Vital Signs Temp 97.8 F 06/09/20 07:25 Pulse 90 06/09/20 07:25 Resp 18 06/09/20 07:25 BP 155/75 06/09/20 07:25 Pulse Ox 97 06/09/20 07:25 Discharge Plan Discharge Patient Disposition: Home Condition: Stable Prescriptions: New Zofran 4 mg tablet 4 mg PO Q6H PRN (Reason: nausea and vomiting) Qty: 20 RF: 0 Senna with Docusate Sodium 8.6-50 mg tablet 1 tab-cap PO BID Qty: 30 RF: 0 hydrocodone-acetaminophen 5-325 mg tablet 1 tab PO Q6H PRN (Reason: pain) Qty: 20 RF: 0 Flagyl 500 mg tablet 500 mg PO Q8H 7 Days Qty: 21 RF: 0 levofloxacin 750 mg tablet 750 mg PO DAILY 7 Days RF: 0 Discharge Orders: Discharge Order (Routine); Ordered 06/09/20 Ordered By: Onofre Mann Referrals: Brandon Rueda MD [Physician] - 06/25/20 10:00 am Onofre Mann MD [Physician] - 06/12/20 8:30 am Discharge Diet: Advance as tolerated Patient Instructions: Hydrocodone/Acetaminophen (By mouth), Metronidazole (By mouth), Laxative, Stool Softeners (By mouth), Ondansetron (By mouth), Levofloxacin (By mouth), Appendicitis (GEN) Activity Restrictions/Additional Instructions: 1. Up and walking as tolerated. 2. Ok to shower in 48 hours after surgery. 3. Keep incision clean and dry 4. Do not lift more than 10 pounds. 5. Do not operate heavy machinery or drive while using pain medications. 6. Advised to return to ER or contact my office if there are any signs of infection like, increasing pain, fevers, chills, redness or drainage of pus. Discharge Attestations Time Spent in Discharge Care*: less than 30 min Quality Metrics Clinical Quality Measures During this hospital stay, did patient experience: None Coding Level of Care Code Acute [facility] JORDAN note Diagnoses S/P laparoscopic appendectomy Z90.49
--- NOTE | 2020-06-09 12:26 | PC.NURSE ---
DISCHARGE INSTRUCTIONS DISCHARGE INSTRUCTIONS GIVEN PER THIS NURSE - PT VERBALIZES UNDERSTANDING - INSTRUCTED PT TO FOOD ADVISER MEDICATION AT [facility] - UNDERSTANDS THIS WELL
[2020-06-09] MEDS: ondansetron 2 mg/ML SDV 2 mL 4 MG IVP (12:28)
[2020-06-09 13:16] VITALS: BP 155/75; PULSE 90; RESP 18; TEMP 36.6; O2SAT 97
== END 2020-06-09 13:17 | disposition home or self-care (01) | DRG 339 ==
LOC: ER 06-08 07:51 → MEDSURG 06-08 07:51
PROVIDERS: Admitting Provider Surgery; Emergency Provider Emergency Medicine; PCP General Practice; Visit Provider Surgery
PROC: 0DTJ4ZZ Resection of Appendix, Percutaneous Endoscopic Approach (ICD-10-PCS; CPT 44970; principal; 2020-06-05 22:30)
DX: K35.32 Acute appendicitis with perforation, localized peritonitis, and gangrene, without abscess (principal); K56.7 Ileus, unspecified
CPT/HCPCS: 36415; 71045; 74177; 80048; 80053; 83690; 85025; 88304; 96361; 96365; 96366; 96367; 96375; 96376; 99285; G0378; J1100; J1170; J2250; J2405; J2543; J2704; J2710; J3010; J3490; J7030; Q9967

== ENCOUNTER → 2020-10-02 14:58 | Outpatient (BNVA) | payer OTHER, SELFPAY | PROVIDERS: PCP General Practice; Visit Provider Registered Nurse Neonatal Intensive Care | DX: Z20.822 Contact with and (suspected) exposure to COVID-19 (principal) | CPT/HCPCS: 87635 ==

== ENCOUNTER → 2021-03-25 11:36 | Outpatient (BNVA) | payer OTHER, SELFPAY | PROVIDERS: PCP General Practice; Visit Provider Nurse Practitioner Family | DX: Z20.822 Contact with and (suspected) exposure to COVID-19 (principal) | CPT/HCPCS: 87635 ==